=== PATIENT | male | born 1955 | race Caucasian/White ===

== ENCOUNTER → 2016-08-22 | Emergency (ER) | payer BC ==
[~2016-08-22] MED LIST: Aspirin Low Dose CHEW TAB* 81 MG PO ONE
--- NOTE | 2016-08-22 09:23 | RAD ---
Indication: Back pain. Single frontal view of the chest performed at 0810 hours was reviewed. Comparison is made with previous exam dated 04/21/2016. No mediastinal shift is noted. Heart is of normal size and configuration. Lung frey appear clear. Lung frey appear hyperinflated. IMPRESSION: NO ACTIVE CARDIOPULMONARY DISEASE IS NOTED.
[2016-08-22 09:31] LABS: Hematocrit 45 % (42-52); Mean Corpuscular HGB Conc 33 g/dl (31-36); Mean Corpuscular Hemoglobin 30 pg (27-31); Mean Corpuscular Volume 90 fL (80-94); Mean Platelet Volume 8 um3 (7.4-10.4); Red Blood Count 5.02 10^6/ul (4.0-5.4); Red Cell Distribution Width 14 % (10.5-15); White Blood Count 7.9 10^3/ul (3.5-10.8)
[2016-08-22 09:46] LABS: Albumin 4.2 g/dL (3.2-5.2); BUN/Creatinine Ratio 22.9 (8-20); Calcium 9.2 mg/dL (8.6-10.3); EGFR African American 102.1 (>60); EGFR Non-African American 79.4 (>60); Globulin 2.5 g/dL (2-4); Potassium 4.5 mmol/L (3.5-5.0); Total Bilirubin 0.7 mg/dL (0.2-1.0); Total Protein 6.7 g/dL (6.4-8.9)
[2016-08-22 10:04] LABS: Magnesium 2.1 mg/dL (1.9-2.7)
--- NOTE | 2016-08-22 10:22 | ED ---
Back Pain - HPI Summary HPI Summary: Patient arrives today with cc of back pain in the thoracic area x5 days after lifting a 50lb object at work. He states the discomfort was a pain and a tightness which has now improved. He has had a cardiac history significant for cardiac bypass. He denies chest discomfort, SOB, jaw pain, upper and lower extremity weakness, JOHNS. Pain is not reproducible and patient is unable to state exactly the location of the discomfort. States the discomfort comes on as a tightness and a pain while making certain movements or lying certain ways, especially when lying on his left side. Patient states the discomfort is improving and did not want to come in, but wanted to make sure it was nothing more serious. - History of Current Complaint Chief Complaint: EDBackInjuryPain Stated Complaint: PAIN ACROSS BACK Hx Obtained From: Patient Onset/Duration: Gradual Onset, Lasting Days - 5 Onset/Duration: Started Days Ago Timing: Intermittent Back Pain Location: Is Discrete @ - thoracic area of spine bilaterally Severity Initially: Moderate Severity Currently: Mild Pain Intensity: 4 Pain Scale Used: 0-10 Numeric Character: Dull, Aching, Stiffness Aggravating Symptom(s): Movement Alleviating Symptom(s): Position - Risk Factors AAA Risk Factors: Negative TAD Risk Factors: Negative Cauda Equina Risk Factors: Negative Epidural Abscess Risk Factors: Negative - Allergies/Home Medications Allergies/Adverse Reactions: Allergies Allergy/AdvReac Type Severity Reaction Status Date / Time CHOLESTEROL MEDICATION Allergy Rash And Uncoded 08/22/16 08:36 Itching PMH/Surg Hx/FS Hx/Imm Hx Previously Healthy: Yes Cardiovascular History: Reports: Hx Hypertension Respiratory History: Reports: Hx Asthma Infectious Disease History: No Infectious Disease History: Denies: Traveled Outside the [place] in Last 30 Days - Social History Occupation: Employed Full-time Lives: With Family Alcohol Use: Rare Hx Substance Use: No Substance Use Type: Reports: None Hx Tobacco Use: No Do You Chew or Dip Tobacco: No Have You Smoked in the Last Year: No Review of Systems - ROS Summary Review of Systems Summary: Constitutional: The patient denies fever, JOHNS. HEENT: Head: The patient denies headaches or dizziness. Eyes: The patient denies diplopia, blurry vision, eye pain, eye discharge, photophobia. Throat: The patient denies sore throats or hoarseness. Cardiovascular: The patient denies chest pain, palpitations, syncope, night cramps, or orthostasis. Respiratory: The patient denies cough, sputum production, hemoptysis, dyspnea, wheezing. Genitourinary: Patient denies dysuria, hematuria. Muscles: The patient endorses strain and muscle discomfort in thoracic area bilaterally. Denies other muscle pain in lower or upper extremities. . Joints: The patient denies arthralgia and/or arthritis. Neurologic: The patient denies headache, loss of consciousness, or seizure. All Other Systems Reviewed And Are Negative: Yes Physical Exam - Summary Physical Exam Summary: Appearance: WDWN. Skin: Soft dry skin, no lesions. Nailbeds pink with no cyanosis or clubbing. Eyes: DM, EOMI, Conjunctiva pink with no redness or exudates. ENT: Hearing grossly intact. Mouth: Dentition without lesions. Neck: Full range of motion. Thyroid not palpable. Trachea at midline. No lymphadenopathy. Pulm: Chest symmetrical expansion. No deformities on posterior chest wall. Lungs clear to auscultation and percussion, without adventitious sounds. CV: No JVD. No deformities on anterior chest wall. Heart soundsRRR, Normal S1 and single S2. No S3, S4, rubs, or murmurs. Carotids 2+ bilaterally without bruits. Musculoskeletal: Full range of motion. no pain, edema, or deformity. Pulses full and equal. No cyanosis, clubbing, or edema. Neuro: Motor strength is 5/5 in upper and lower extremities bilaterally. Derm: No rashes or lesions noted. Neuro: Sensation intact to light touch, temperature, and pinprick. DTRs 2+ in biceps, triceps, quadriceps and ankles. Triage Information Reviewed: Yes Vital Signs On Initial Exam: Initial Vitals Temp Pulse Resp BP Pulse Ox 98.8 F 86 15 165/109 99 08/22/16 08:15 08/22/16 08:15 08/22/16 08:15 08/22/16 08:15 08/22/16 08:15 Vital Signs Reviewed: Yes Appearance: Positive: Well-Appearing, No Pain Distress Diagnostics - Vital Signs Vital Signs Temp Pulse Resp BP Pulse Ox 08/22/16 08:15 98.8 F 86 15 165/109 99 - Laboratory Lab Results: Lab Results 08/22/16 08/22/16 Range/Units 09:23 09:23 WBC 7.9 (3.5-10.8) 10^3/ul RBC 5.02 (4.0-5.4) 10^6/ul Hgb 15.0 (14.0-18.0) g/dl Hct 45 (42-52) % MCV 90 (80-94) fL MCH 30 (27-31) pg MCHC 33 (31-36) g/dl RDW 14 (10.5-15) % Plt Count 174 (150-450) 10^3/ul MPV 8 (7.4-10.4) um3 Neut % (Auto) 65.1 (38-83) % Lymph % (Auto) 18.7 L (25-47) % Kemper % (Auto) 12.8 H (1-9) % Eos % (Auto) 2.8 (0-6) % Baso % (Auto) 0.6 (0-2) % Absolute Neuts (auto) 5.1 (1.5-7.7) 10^3/ul Absolute Lymphs (auto) 1.5 (1.0-4.8) 10^3/ul Absolute Monos (auto) 1.0 H (0-0.8) 10^3/ul Absolute Eos (auto) 0.2 (0-0.6) 10^3/ul Absolute Basos (auto) 0 (0-0.2) 10^3/ul Absolute Nucleated RBC 0.01 10^3/ul Nucleated RBC % 0.1 Sodium 137 (133-145) mmol/L Potassium 4.5 (3.5-5.0) mmol/L Chloride 102 (101-111) mmol/L Carbon Dioxide 29 (22-32) mmol/L Anion Gap 6 (2-11) mmol/L BUN 22 (6-24) mg/dL Creatinine 0.96 (0.67-1.17) mg/dL Est GFR ( Amer) 102.1 (>60) Est GFR (Non-Af Amer) 79.4 (>60) BUN/Creatinine Ratio 22.9 H (8-20) Glucose 125 H (70-100) mg/dL Calcium 9.2 (8.6-10.3) mg/dL Magnesium 2.1 (1.9-2.7) mg/dL Total Bilirubin 0.70 (0.2-1.0) mg/dL AST 23 (13-39) U/L ALT 23 (7-52) U/L Alkaline Phosphatase 48 (34-104) U/L Total Creatine Kinase 120 (10-223) U/L CK-MB (CK-2) 2.3 (0.6-6.3) ng/mL Myoglobin 44.1 (17.4-105.7) ng/mL Total Protein 6.7 (6.4-8.9) g/dL Albumin 4.2 (3.2-5.2) g/dL Globulin 2.5 (2-4) g/dL Albumin/Globulin Ratio 1.7 (1-3) Result Diagrams: 08/22/16 09:23 08/22/16 09:23 Lab Statement: Any lab studies that have been ordered have been reviewed, and results considered in the medical decision making process. - EKG No standard instances Cardiac Rate: NL ST Segment: Normal Ectopy: None EKG Comparison: No Significant Change Back Pain Course/Dx - Course Course Of Treatment: patient cc of mid back pain after lifting 50lb object. cardiac hx significant for bypass. denies chest pressure/pain or other concerning factors. Trop and other labs obtained. Patient left AMA. Discussed with patient prior to leaving, medical decision making included running the trending trops and overnight stay based on symptoms and history. Patient chose to leave AMA, agreed. Muscle relaxant sent to rx. Follow up with PCP sade for outpatient echo and stress test. - Diagnoses Differential Diagnosis/HQI/PQRI: Positive: Herniated Disc, Strain, Sprain Provider Diagnoses: Muscle ache - Provider Notifications Instructed by Provider To: Have Pt Call For Appt. Images - Images Full Body (No Head): 1 - achy, tightness 2 - achy, tightness Discharge - Discharge Plan Condition: Stable Disposition: AGAINST MEDICAL ADVICE Prescriptions: Cyclobenzaprine TAB* [Flexeril TAB*] 10 mg PO BID PRN #20 tab PRN Reason: Pain
[2016-08-22 11:41] VITALS: BP 169/102
--- NOTE | 2016-10-28 14:53 | ED ---
Vincent Vang Soohyun, scribed for Jose Cruz Munoz MD on 08/22/16 at 1025 . Progress - Progress Note Progress Note: This 61 y/o male presents to ED for pain between his shoulder blades. Pt reports dropping 20 lb of weight last week, and complains that the pain has been intermittent since then. The pain is not consistently reproducible. Negative CP. Trop and cardiac work is recommended. Course/Dx - Diagnoses Provider Diagnoses: Chest pain, unspecified, Left against medical advice The documentation as recorded by the [email or web address] mcduffie Soohyun accurately reflects the service I personally performed and the decisions made by Alexander bliss Jerry, MD.
== END | disposition left against medical advice (07) ==
LOC: ED 08:07
DX: M54.6 Pain in thoracic spine (principal); I10 Essential (primary) hypertension; J45.909 Unspecified asthma, uncomplicated; X50.0XXA Overexertion from strenuous movement or load, initial encounter; Y92.9 Unspecified place or not applicable
CPT/HCPCS: 36415; 71010; 80053; 82550; 82553; 83735; 83874; 84484; 85025; 93005; 99284; A9270-GY

== ENCOUNTER 2019-05-17 10:37 | Emergency (ER) | payer MEDICARE ==
--- NOTE | 2019-05-17 10:59 | UC ---
Dental HPI - HPI Summary HPI Summary: patient has had intermittent pain lower R molar in past, knows he has a "crack in it". but last evening pain got worse and he was unable to sleep despite using ibuprofen 800mg. Currently the pain is tolerable but afraid it will worsen again. Has DDS appointment scheduled for this Sunday - History of Current Complaint Chief Complaint: UCDentalProblem Stated Complaint: DENTAL PAIN Time Seen by Provider: 05/17/19 10:39 Hx Obtained From: Patient Onset/Duration: Sudden Onset Severity: Severe Pain Intensity: 9 Aggravating Factor(s): Heat, Cold, Chewing Alleviating Factor(s): Nothing Related History: Previous Dental Care on Same Tooth - Allergies/Home Medications Allergies/Adverse Reactions: Allergies Allergy/AdvReac Type Severity Reaction Status Date / Time CHOLESTEROL MEDICATION Allergy Rash And Uncoded 05/17/19 10:46 Itching Home Medications: Home Medications Aspirin 81 mg CHEW TAB* 1 tab PO DAILY 05/17/19 [History Confirmed 05/17/19] Rosuvastatin (NF) [Crestor (NF)] 40 mg PO BEDTIME 05/17/19 [History Confirmed ] PMH/Surg Hx/FS Hx/Imm Hx Previously Healthy: Yes Endocrine History: Dyslipidemia - Surgical History Surgical History: Yes Surgery Procedure, Year, and Place: SINUS SX - Family History Known Family History: Positive: Hypertension - Social History Occupation: Retired Lives: With Family Alcohol Use: Rare Substance Use Type: None Smoking Status (MU): Never Smoked Tobacco Have You Smoked in the Last Year: No Review of Systems All Other Systems Reviewed And Are Negative: Yes Constitutional: Positive: Negative. Negative: Fever, Chills Skin: Positive: Negative ENT: Positive: Dental Pain. Negative: Sore Throat, Ear Ache Respiratory: Positive: Negative Cardiovascular: Positive: Negative Gastrointestinal: Positive: Negative Psychological: Positive: Negative Is Patient Immunocompromised?: No Physical Exam Triage Information Reviewed: Yes Appearance: Well-Appearing, No Pain Distress, Well-Nourished Vital Signs: Initial Vital Signs Temp 98.1 F 05/17/19 10:42 Pulse 88 05/17/19 10:42 Resp 18 05/17/19 10:42 BP 151/104 05/17/19 10:42 Pulse Ox 100 05/17/19 10:42 Vital Signs Reviewed: Yes Eyes: Positive: Conjunctiva Clear ENT: Positive: Pharynx normal Dental: Positive: Other: - broken filling lower R molar - stated source of pain. gum swollen and erythemic, no drainage,. Negative: Abscess @, Cervical Lymphadenopathy Respiratory Exam: Normal Cardiovascular Exam: Normal Psychological Exam: Normal Skin Exam: Normal Dental Complaint Course/Dx - Differential Dx/Diagnosis Differential Diagnosis/Dx: Dental Abscess, Dental Caries, Fractured Tooth, TMJ Syndrome Provider Diagnosis: Dental abscess Discharge ED - Sign-Out/Discharge Documenting (check all that apply): Patient Departure All imaging exams completed and their final reports reviewed: No Studies - Discharge Plan Condition: Good Disposition: HOME Prescriptions: Acetaminop/Codeine 30 MG TAB* [Tylenol/Codeine 30 MG TAB*] 1 - 2 tab PO Q6H PRN #30 tab MDD 8 PRN Reason: Pain - Severe Amoxicillin 875 mg PO BID #20 tablet Patient Education Materials: Dental Abscess (ED) Referrals: Kun Remy MD [Primary Care Provider] - 2 Days (recheck blood pressure) Additional Instructions: start amoxicillin antibiotic and take as directed use Tylenol #3 (codeine) as directed for severe pain - this may make you drowsy Use ibuprofen 600-800mg every 6hours as needed for pain - take with food See your dentist as planned on Sunday - Billing Disposition and Condition Condition: GOOD Disposition: Home
[2019-05-17 11:07] VITALS: BP 136/90
== END 2019-05-17 11:16 | disposition home or self-care (01) ==
LOC: UCEAST 10:37
DX: K04.7 Periapical abscess without sinus (principal); E78.5 Hyperlipidemia, unspecified; Z88.9 Allergy status to unspecified drugs, medicaments and biological substances; Z79.82 Long term (current) use of aspirin; Z79.899 Other long term (current) drug therapy
CPT/HCPCS: 99212; G0463